=== PATIENT | female | born 1985 | race Caucasian/White ===

== ENCOUNTER 2025-06-05 13:31 | Inpatient (IN) | payer MEDICAID, OTHER, SELFPAY ==
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
[2025-06-05 13:50] VITALS: BP 147/88; BP 176/124; PULSE 121; PULSE 97; RESP 16; TEMP 36.3; O2SAT 97; O2SAT 99; BMI 34.7
[2025-06-05 13:54] VITALS: RESP 16
--- NOTE | 2025-06-05 13:56 | ECG_ITS ---
Test Reason : MED CLEAR Blood Pressure : */* mmHG Vent. Rate : 85 BPM Atrial Rate : 85 BPM P-R Int : 156 ms QRS Dur : 106 ms QT Int : 380 ms P-R-T Axes : 28 56 40 degrees QTcB Int : 452 ms Normal sinus rhythm Incomplete right bundle branch block Borderline ECG No previous ECGs available Referred By: Emily Tate Electronically Signed By: Santo Isaac
--- NOTE | 2025-06-05 13:57 | PC.NURSE ---
Anusha presents to the Emergency Department today via ambulance on a Section 12 issued by [facility] pin worker in the field. per Section 12, pt is decompensation, agitated, with a history of aggression and not attending to medical needs. Upon arrival, pt has very disorganized thought processes, talking in circles about being unable to discuss medical topics as she needs because she needs to conserve oxygen . Pt reports she was outside digging out her sprinklers when someone from the [facility] came and called 911 on her. Pt denies SI/HI/AH/VH Pt does have notable bilateral lower extremity swelling which she reports is not baseline, will not let this RN palpate
--- NOTE | 2025-06-05 14:10 | PC.NURSE ---
Pt refusing to verify allergies I cannot speak any longer, I must conserve all my oxygen
[2025-06-05 14:36] LABS: MANUAL DIFF FLAG NO
[2025-06-05 14:37] LABS: Hematocrit 32.3 % (37.0-47.0); Hemoglobin 10.6 g/dl (12.0-16.0); Imm Gran Abs Auto 0.04 X10*3/uL (0.00-0.03); Imm Gran Pct Auto 0.4 % (0.0-0.4); Lymphocytes Absolute Auto 1.2 X10*3/uL (1.2-4.9); Mean Corpuscular HGB Conc 32.8 g/dl (31.0-35.0); Mean Corpuscular Hemoglobin 27.5 pg (27.0-33.0); Mean Corpuscular Volume 83.7 fL (80.0-98.0); NRBC Abs Auto 0.000 X10*3/uL (0.0-0.012); NRBC Pct Auto 0.0 /100WBC (0.0-0.2); Platelet Count 477 X10*3/uL (160-400); Red Blood Count 3.86 X10*6/uL (4.20-5.50); White Blood Count 9.9 X10*3/uL (4.8-10.8)
[2025-06-05 15:01] LABS: Acetaminophen LAB < 3 mcg/mL (<30); Alanine Aminotransferase 28 U/L (0-31); Albumin Level 4.2 g/dL (3.5-5.0); Alkaline Phosphatase 70 U/L (39-117); Anion Gap 9 (12-20); Aspartate Amino Transferase 33 U/L (5-31); Blood Urea Nitrogen 12 mg/dL (9-16); Calcium 9.2 mg/dL (8.4-10.2); Carbon Dioxide 28 mmol/L (22-29); Chloride 106 mmol/L (96-108); Creatinine Clr Calc Pharmacy 130.1; Estimated Glomerular Filt Rate > 60; Potassium 3.2 mmol/L (3.3-5.1); Salicylate < 5.0 mg/dL (15-30); Sodium 140 mmol/L (135-145); Total Protein 7.6 g/dL (6.5-8.0)
--- OUTSIDE RECORDS SUMMARY | 2025-06-05 15:24 | XMS_ITS | Clinical Summary ---
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
--- OUTSIDE RECORDS SUMMARY | 2025-06-05 15:24 | XMS_ITS | Encounter Summary ---
Author Organization [facility] Address [address] [place] [address] Care Team Providers Care Shoes Hand Sewer Name Role Phone Jeovany Hurleyjerzy Primary Care Provider [phone] Encounter Details Date Type Department Care Team (Late st Contact Info) Description 07/28/2024 Patient Outreach [facility] [address] [place] [phone] Director Of Women'S Services: Emily Madrid RN Social History Tobacco Use Types Packs/Day Years Used Date Smoking Tobacco: Former Cigarettes 0.3 19.5 S tarted: 2006 Smokeless Tobacco: Former Alcohol Use Standard Drinks/Week Comments Not Currently 0 (1 standard drink = 0.6 oz pur e alcohol) Comments No Sex and Gender Information Value Date Recorded Sex Assigned at Female 03/06/2022 8:33 AM EDT Legal Sex Female 1:46 PM EDT Gender Identity Female 03/06/2022 8:33 AM EDT Sexual Orientation Straight 03/06/2022 8: 33 AM EDT documented as of this encounter Plan of Treatment Upcoming Encounters Date Type Department Care Team (Late st Contact Info) Description 08/22/2025 9:45 AM EDT Appointment [facility] [address] [place] [phone] Director Of Women'S Services: Aryan Israel Jr., MD [address] [place] [phone] documented as of this encounter Visit Diagnoses Not on filedocumented in this encounter Care Teams Shoes Hand Sewer Relationship Specialty Start Date End Date Meghana Hurley [address] [place] [id number] PCP - General Nurse Practitioner 05/23/21 documented as of this encounter
--- OUTSIDE RECORDS SUMMARY | 2025-06-05 15:24 | XMS_ITS | Clinical Summary ---
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 Active amoxicillin (AMOXIL) 875 MG tablet Take 1 tablet (875 mg total) by mouth 2 (two) times a day. 04/25/2025 Active gabapentin (NEURONTIN) 100 MG capsule Take 1 capsule (100 mg total) by mouth 3 (three) times a day. 03/28/2025 Active nystatin (MYCOSTATIN) 610400 UNIT/ML suspension Take 5 mL (500,000 Units total) by mouth 4 (four) times a day. 04/25/2025 Active Active Problems Problem Noted Date Diagnosed Date Paranoia 04/27/2025 Encounters Date Type Department Care Team Description 04/27/2025 7:54 AM EDT - 04/27/2025 6:15 PM EDT Hospital Encounter [facility] Emergency Department [address] [place] [address] Diane Espinosa MD Anxiety (Primary Dx); Paranoia (HCC); Palpitations; Depression, unspecified depression type Discharge Disposition: Home or Self Care 04/27/2025 Travel from Last 3 Months Social History Tobacco Use Types Packs/Day Years Used Date Smoking Tobacco: Never Assessed Comments Unknown Sex and Gender Information Value Date Recorded Sex Assigned at Female 04/27/2025 9:30 AM EDT Legal Sex Female 7:27 AM EDT Gender Identity Female 04/27/2025 9:30 AM EDT Sexual Orientation Choose not to disclose 2024 9:30 AM EDT Last Filed Vital Signs Vital Sign Reading Time Taken Comments Blood Pressure 145/70 04/27/2025 11:06 AM EDT Pulse 80 04/27/2025 11:06 AM EDT Temperature 36.3 C (97.3 F) 04/27/2025 11:06 AM EDT Respiratory Rate 16 04/27/2025 11:06 AM EDT Oxygen Saturation 99% 04/27/2025 11:06 AM EDT Inhaled Oxygen Concentration - - Weight - - Height - - Body Mass Index - - Plan of Treatment Health Maintenance Due Date Last Done Comments Hepatitis C Virus Screening 1984 HIV Screening 1997 DTaP/Tdap/Td Vaccines (1 - Tdap) 2003 Hepatitis B Vaccines (1 of 3 - 19+ 3-dose series) 2003 Pap Smear (Ages 21-65) 2005 Mammogram 2024 COVID-19 Vaccine ( - 2023-2 5 season) 2024 Influenza Vaccine 06/29/2025 HPV Vaccines Aged Out No longer eligi ble based on patient's age to complete this topic Pneumococcal Vaccine: Pediat radha (0-5 Years) and At-Risk Patients (6 to 49 Years) Aged Out No longer eligible b ased on patient's age to complete this topic Procedures Procedure Name Priority Date/Time Associated Diagnosis Comments URINALYSIS WITH REFLEX TO MICROSCOPIC AND CULTURE STAT 04/27/2025 12:48 PM EDT POCT ALCOHOL BREATH TEST (ED) Routine 04/27/2025 12:42 PM EDT TSH, HIGHLY SENSITIVE Routine 04/27/2025 9:02 AM EDT MAGNESIUM Routine 04/27/2025 9:02 AM EDT BETA-HCG, QUALITATIVE Routine 04/27/2025 9:02 AM EDT HIGH SENSITIVITY TROPONIN T CARD 04/27/2025 9:02 AM EDT COMPREHENSIVE METABOLIC PANEL STAT 04/27/2025 9:02 AM EDT COMPLETE BLOOD COUNT, WITH DIFFERENTIAL STAT 04/27/2025 9:02 AM EDT ECG 12-LEAD STAT 04/27/2025 8:57 AM EDT from Last 3 Months Results * (ABNORMAL) Urinalysis with Reflex to Microscopic and Culture (04/27/2025 12:48 PM EDT) Color Yellow 04/27/2025 1:29 PM EDT [facility] Clarity Slightly cloudy 04/27/2025 1:29 PM EDT [facility] Specific [place] 1.025 1.003 - 1.030 04/27/2025 1:29 PM EDT [facility] pH 5.0 5.0 - 8.0 04/27/2025 1:29 PM EDT [facility] Leukocyte Esterase Small(A) Negative 04/27/2025 1:29 PM EDT [facility] Nitrite Negative Negative 04/27/2025 1:29 PM EDT [facility] Protein Negative Negative [facility] Gl[facility] 0 0 - 99 mg/dL 04/27/2025 1:29 PM EDT [facility] Ketones Small(A) Negative 04/27/2025 1:29 PM EDT [facility] Blood Moderate(A) Negative 04/27/2025 1:29 PM EDT [facility] Bilirubin Negative Negative 04/27/2025 1:29 PM EDT [facility] WBC 5(H) 0 - 4 per hpf 04/27/2025 1:29 PM [facility] RBC 5(H) 0 - 4 per hpf 04/27/2025 1:29 PM EDT [facility] Squamous Epithelial Cells 18 PER HPF 04/27/2025 1:29 PM [facility] Urine Urine specimen obtained by clean catch procedure / Unknown 04/27/2025 12:48 PM EDT 04/27/2025 1:03 PM EDT Diane Espinosa MD URINE ORDERABLES Final Resu lt [address] [address], [address] [address] * POCT Alcohol Breath Test (ED) (04/27/2025 12:42 PM EDT) [facility] Breath Alcohol 0.000 Breath 04/27/2025 12:4 2 PM EDT us Diane Espinosa MD POINT OF CARE TEST ORDERABL ES Final Result * Troponin T, High Sensitivity (04/27/2025 9:02 AM EDT) [facility] High Sensitivity Troponin T 7 <15 ng/L 04/27/2025 10:55 AM EDT [facility] Delta (Change) NO PREVIOUS RESULT <3 04/27/2025 10:55 AM EDT [facility] Blood Blood specimen / Unknown 04/27/2025 9:02 AM EDT 04/27/2025 10:07 AM EDT us Diane Espinosa MD LAB BLOOD ORDERABLES Final Result Performing Organization Address City/[facility]/ZIP Co de Phone Number [address] [address], [address] [address] * (ABNORMAL) Complete Blood Count, with Differential (04/27/2025 9:02 AM EDT) [facility] White Blood Cell Count 12.0(H) 4.0 - 11.0 Thou/uL 04/27/2025 10:28 AM EDT [facility] Platelet Count 482(H) 150 - 450 Thou/uL 04/27/2025 10:28 AM EDT [facility] Hemoglobin 11.4(L) 11.7 - 15.7 g/dL 04/27/2025 10:28 AM EDT [facility] Hematocrit 35.1 35.0 - 47.0 % 04/27/2025 10:28 AM EDT [facility] Red Blood Cell Count 4.17 4.00 - 5.40 Mil/uL 04/27/2025 10:28 AM [facility] MCV 84 80 - 100 fL 04/27/2025 10:28 AM [facility] MCH 27.3 26.0 - 34.0 pg 04/27/2025 10:28 AM [facility] MCHC 32.5 30.0 - 36.0 g/dL 04/27/2025 10:28 AM [facility] RDW 14.7(H) 11.5 - 14.5 % 04/27/2025 10:28 AM [facility] MPV 8.9 7.5 - 12.5 fL 04/27/2025 10:28 AM [facility] Neutrophils Auto 80.6 % 04/27/20 10:28 AM [facility] Immature Granulocytes 0.6 % 04/27/2025 10:28 AM [facility] Lymphocytes Auto 11.2 % 04/27/20 10:28 AM [facility] Monocytes Auto 7.1 % 04/27/2025 10:28 AM [facility] Eosinophils Auto 0.2 % 04/27/20 10:28 AM [facility] Basophils Auto 0.3 % 04/27/2025 10:28 AM [facility] Abs Neutrophils Auto 9.65(H) 2.00 - 7.50 Thou/uL 04/27/2025 10:28 AM [facility] Abs Immature Granulocytes 0.07 0.00 - 0.10 Thou/uL 04/27/2025 10:28 AM [facility] Abs Lymphocytes Auto 1.34(L) 1.50 - 4.50 Thou/uL 04/27/2025 10:28 AM [facility] Abs Monocytes Auto 0.85 0.20 - 1.50 Thou/uL 04/27/2025 10:28 AM [facility] Abs Eosinophils Auto 0.02 0.00 - 0.70 Thou/uL 04/27/2025 10:28 AM [facility] Abs Basophils Auto 0.04 0.00 - 0.20 Thou/uL 04/27/2025 10:28 AM [facility] Blood Blood specimen / Unknown 04/27/2025 9:02 AM EDT 04/27/2025 10:07 AM EDT us Diane Espinosa MD LAB BLOOD ORDERABLES Final Result [address] [address], [address] [address] * BETA-HCG, QUALITATIVE (04/27/2025 9:02 AM EDT) Beta-hCG, Qualitative Negative Negative 04/27/2025 10:55 AM EDT [facility] 04/27/2025 9:02 AM EDT 04/27/2025 10:07 AM EDT us Diane Espinosa MD LAB BLOOD ORDERABLES Final Result Performing Organization Address City/[facility]/ZIP Co de Phone Number [address] [address], [address] [address] * TSH, HIGHLY SENSITIVE (04/27/2025 9:02 AM EDT) TSH, Highly Sensitive 1.41 0.27 - 4.20 mIU/L 04/27/2025 10:55 AM EDT [facility] 04/27/2025 9:02 AM EDT 04/27/2025 10:07 AM EDT us Diane Espinosa MD LAB BLOOD ORDERABLES Final Result [address] [address], [address] [address] * Magnesium (04/27/2025 9:02 AM EDT) Magnesium 2.3 1.6 - 2.7 mg/dL 04/27/2025 11:06 AM EDT [facility] 04/27/2025 9:02 AM EDT 04/27/2025 10:07 AM EDT us Diane Espinosa MD LAB BLOOD ORDERABLES Final Result [facility] [address] [place] [address], [facility] [address] [place] [address] * (ABNORMAL) Comprehensive Metabolic Panel (04/27/2025 9:02 AM EDT) Glucose 109(H) 65 - 99 mg/dL 04/27/2025 11:06 AM [facility] Comment:Fasting: <100 mg/dL, Non-Fasting: <200 mg/dL (ADA 2004) Blood Urea Nitrogen (BUN) 12 8 - 21 mg/dL 04/27/2025 11:06 AM [facility] Creatinine 0.5 0.4 - 1.1 mg/dL 04/27/2025 11:06 AM [facility] eGFR >90 >59 04/27/2025 11:06 AM [facility] Comment:CKD-EPI (2020) in mL /min/1.73 sq meters. Sodium 134(L) 136 - 145 mmol/L 04/27/2025 11:06 AM [facility] Potassium 3.4 3.4 - 5.3 mmol/L 04/27/2025 11:06 AM [facility] Chloride 98 98 - 107 mmol/L 04/27/2025 11:06 AM [facility] CO2 20(L) 22 - 33 mmol/L 04/27/2025 11:06 AM [facility] Calcium 9.2 8.7 - 10.5 mg/dL 04/27/2025 11:06 AM [facility] Alkaline Phosphatase 87 32 - 122 U/L 04/27/2025 11:06 AM [facility] Aspartate Aminotrans (AST) 41 10 - 50 U/L 04/27/2025 11:06 AM [facility] Alanine Aminotrans (ALT) 45 10 - 50 U/L 04/27/2025 11:06 AM [facility] Bilirubin, Total 0.4 0.2 - 1.0 mg/dL 04/27/2025 11:06 AM EDT [facility] Protein, Total 8.1 6.3 - 8.3 g/dL 04/27/2025 11:06 AM EDT [facility] Albumin 4.0 3.5 - 5.0 g/dL 04/27/2025 11:06 AM EDT [facility] BUN/Creatinine Ratio 24 10.0 - 25.0 Ratio 04/27/2025 11:06 AM EDT [facility] Globulin 4.1(H) 1.5 - 3.9 g/dL 04/27/2025 11:06 AM EDT [facility] Albumin/Globulin Ratio 1.0 1.0 - 3.0 Ratio 04/27/2025 11:06 AM EDT [facility] Anion Gap 16 7 - 17 04/27/2025 11:06 AM EDT [facility] Blood Blood specimen / Unknown 04/27/2025 9:02 AM EDT 04/27/2025 10:07 AM EDT Diane Espinosa MD LAB BLOOD ORDERABLES Final Result [address] [address], [address] [address] * ECG 12 lead (04/27/2025 8:57 AM EDT) Ventricular rate 83 BPM EKG [facility] Atrial rate 83 BPM EKG [facility] P-R interval 134 ms EKG [facility] QRS duration 104 ms EKG [facility] Q-T interval 376 ms EKG [facility] QTC calculation (Bazett) 442 ms EKG [facility] P axis 18 degrees EKG [facility] R axis 28 degrees EKG [facility] T axis 14 degrees EKG [facility] 04/27/2025 8:57 AM EDT Narrative EKG [facility] - 04/27/2025 8:16 PM EDT Normal sinus rhythm Incomplete right bundle branch block Borderline ECG No previous ECGs available Confirmed by MD Vogel Ahmed ([id number]) on 04/27/2025 8:15:54 PM Procedure Note Keren Vogel MD - 04/27/2025 Normal sinus rhythm Incomplete right bundle branch block Borderline ECG No previous ECGs available Confirmed by MD Vogel Ahmed ([id number]) on 04/27/2025 8:15:54 PM Diane Espinosa MD ECG ORDERABLES Final Resul t EKG [facility] from Last 3 Months Insurance [facility]
--- NOTE | 2025-06-05 16:08 | PC.NURSE ---
Pt actively refusing to give urine sample and will not allow for EKG
--- NOTE | 2025-06-05 17:59 | PC.NURSE ---
Pt reports to this RN I need to be seen immediately by an OBGYN for the medical emergency I am having . Pt then went on to detail how she has had multiple falls over the past two months with multiple miscarriages. Pt denies at this time. Pt demanding to call her therapist, pt provided with number for [facility]. Pt was evaluated by provider for abdominal pain with no active findings at this time
--- NOTE | 2025-06-05 18:04 | PC.NURSE ---
Pt reports I am hemorrhaging and no one gives a shit . 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 Again pt has been medically cleared
--- NOTE | 2025-06-05 18:08 | PC.NURSE ---
Addendum entered by Selma Hidalgo 06/05/25 18:13: pt continues to repeat herself Please stop asking me to repeat myself, you are exacerbating my conditions Original Note: Pt currently on phone with therapist office I need to speak with my therapist, this is an emergency I am being held against my will, I am not being treated, I cannot speak without wasting oxygen, send help . This RN attempted to verbally redirect patient, pt continuing to speak on phone
--- NOTE | 2025-06-05 18:22 | PC.NURSE ---
This RN spoke to pts father on the phone, he reports that pt has been having episodes of psychosis recently, was recently inpatient at [place], was discharged with medications and has since been non-compliant with medications since
--- NOTE | 2025-06-05 19:39 | PC.NURSE ---
patient continues with delusion and periodically argumentative with staff you are not attending to my medical needs apprently has declined to give us urine sample. will continue to monitor for safety.
--- NOTE | 2025-06-05 20:11 | PC.NURSE ---
calling peer and trying to have a person come visit t/w advised client visiting hours are 8-8p. the lock was too heavy to lift for my bike car is in impound and i cant afford to get it out so i said just keep it
--- NOTE | 2025-06-05 20:36 | PC.NURSE ---
intra administration of tylenol for abd cramps patient reported shivering and had just received last blanket from blanket warmer, t/w told client she had the last one and t/w would bring another when it was warm, in about 20 minutes t/w also had request for warm pack which patient had had one in last hour, t/w told her about 3 hours she may have another.
--- NOTE | 2025-06-06 05:17 | PC.NURSE ---
patient made rbistling antagonistic statements to staff who were attending to her wants during and after obtaining urine sample. mildly challenging to redirect.
[2025-06-06 05:23] LABS: Appearance Urine Cloudy; Glucose Urine UA Negative (Negative); PH 6.0 (5.0-9.0); Specific Gravity - Urine 1.020 (1.005-1.025); UMIC TRIGGER UA YES
[2025-06-06 05:32] LABS: Cannabinoid Screen Urine POSITIVE (Not Detect)
--- NOTE | 2025-06-06 07:37 | PC.NURSE ---
Patient ambulating in common area stating I need a kosher diet, I can not eat sausage [facility] called stating they do not do kosher diets- patient agreeable to eggs and toast.
[2025-06-06 07:47] VITALS: BP 140/105; PULSE 92; RESP 16; TEMP 36.1; O2SAT 97
--- NOTE | 2025-06-06 08:29 | PC.NURSE ---
Declined AM meds stating that she is , reviewed with patient that test was negative, patient with belief that she is is and needs to be seen by obgyn. Care team aware stating PA spoke with patient yesterday.
--- NOTE | 2025-06-06 08:48 | PC.NURSE ---
Patient father dropped off discharge paperwork from previous hospital stay, paperwork placed in patients chart.
--- NOTE | 2025-06-06 10:30 | PHA.MEDREC ---
Addendum entered by Jim Kirby [facility] 06/06/25 11:53: MED REC CHECKED BY [facility] Original Note: Pharmacy Consult ? Medication Reconciliation Pharmacy reviewed med rec done by nursing. Claims match what is confirmed.
[2025-06-06 11:39] VITALS: BP 147/92; PULSE 92; RESP 16; TEMP 36.4; O2SAT 98
[2025-06-06 11:50] LABS: Alanine Aminotransferase 26 U/L (0-31); Albumin Level 3.8 g/dL (3.5-5.0); Alkaline Phosphatase 67 U/L (39-117); Anion Gap 9 (12-20); Aspartate Amino Transferase 26 U/L (5-31); Blood Urea Nitrogen 6 mg/dL (9-16); Calcium 9.5 mg/dL (8.4-10.2); Carbon Dioxide 28 mmol/L (22-29); Chloride 105 mmol/L (96-108); Creatinine Clr Calc Pharmacy 150.3; Estimated Glomerular Filt Rate > 60; Potassium 3.4 mmol/L (3.3-5.1); Sodium 139 mmol/L (135-145); Total Protein 7.1 g/dL (6.5-8.0)
[2025-06-06 14:00] VITALS: BP 150/80; PULSE 93; RESP 18; TEMP 36.7; O2SAT 97
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
--- NOTE | 2025-06-06 16:23 | PC.NURSE ---
Pt signed a 3 day notice 06/06/25, up on Wednesday06/11/25
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
[2025-06-06 21:18] VITALS: RESP 18
[2025-06-07 07:00] VITALS: BMI 33.3
[2025-06-07 07:42] VITALS: BP 137/87; PULSE 95; RESP 20; TEMP 36.4; O2SAT 98
[2025-06-07 08:54] LABS: Hemoglobin A1C 113.9628 umol/L; Total Hemoglobin (HGBA1C) 3096.9840 umol/L
[2025-06-07 08:55] LABS: Alanine Aminotransferase 24 U/L (0-31); Albumin Level 3.9 g/dL (3.5-5.0); Alkaline Phosphatase 68 U/L (39-117); Anion Gap 11 (12-20); Aspartate Amino Transferase 27 U/L (5-31); Blood Urea Nitrogen 8 mg/dL (9-16); Calcium 8.8 mg/dL (8.4-10.2); Carbon Dioxide 27 mmol/L (22-29); Chloride 103 mmol/L (96-108); Cholesterol 189 mg/dL (<200); Creatinine Clr Calc Pharmacy 134.0; Estimated Glomerular Filt Rate > 60; HDL Cholesterol 38 mg/dL (>40); Potassium 3.5 mmol/L (3.3-5.1); Sodium 137 mmol/L (135-145); Total Protein 7.2 g/dL (6.5-8.0); Triglycerides 116 mg/dL (<150)
[2025-06-07] MEDS: Nicotine Polacrilex Lozenge 4 MG LOZENGE BUCCAL (14:20)
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
[2025-06-07 20:00] VITALS: BP 116/58; PULSE 87; RESP 16; TEMP 36.6; O2SAT 95
[2025-06-07] MEDS: carBAMazepine ER 200 MG TAB.ER.12H PO (20:51)
[2025-06-08 07:25] VITALS: BP 132/88; PULSE 85; RESP 16; TEMP 36.4; O2SAT 99
[2025-06-08] MEDS: carBAMazepine ER 200 MG TAB.ER.12H PO ×2 (08:04→20:11)
[2025-06-08] MEDS: Nicotine Polacrilex Lozenge 4 MG LOZENGE BUCCAL ×4 (10:29→17:49)
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
[2025-06-08] MEDS: Mineral Oil/Petrolatum,White 106 GM Tube 1 APPL TOPICAL (14:38)
[2025-06-08 19:34] VITALS: BP 140/76; PULSE 96; RESP 17; TEMP 36.4; O2SAT 99
[2025-06-09] MEDS: Nicotine Polacrilex Lozenge 4 MG LOZENGE BUCCAL ×4 (06:36→20:16)
[2025-06-09 08:00] VITALS: BP 117/65; PULSE 90; RESP 18; TEMP 36.4; O2SAT 99
[2025-06-09] MEDS: Mineral Oil/Petrolatum,White 106 GM Tube 1 APPL TOPICAL (08:16)
[2025-06-09] MEDS: carBAMazepine ER 200 MG TAB.ER.12H PO ×2 (08:17→20:25)
[2025-06-09 20:00] VITALS: BP 146/73; PULSE 84; RESP 16; TEMP 36.4; O2SAT 98
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
[2025-06-10] MEDS: Nicotine Polacrilex Lozenge 4 MG LOZENGE BUCCAL ×6 (06:20→20:03)
[2025-06-10 07:59] VITALS: BP 143/84; PULSE 91; RESP 20; TEMP 36.4; O2SAT 100
[2025-06-10] MEDS: Mineral Oil/Petrolatum,White 106 GM Tube 1 APPL TOPICAL ×2 (08:41→14:50)
[2025-06-10] MEDS: carBAMazepine ER 200 MG TAB.ER.12H PO ×2 (08:41→20:03)
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
[2025-06-10 20:00] VITALS: BP 143/80; PULSE 99; RESP 16; TEMP 36.7; O2SAT 97
[2025-06-10] MEDS: Sodium Chloride 0.65 % Nasal 44 ML SPRBTL 1 SPRAY NOSTRIL-B (20:59)
[2025-06-11] MEDS: Nicotine Polacrilex Lozenge 4 MG LOZENGE BUCCAL ×3 (05:30→11:47)
[2025-06-11 08:00] VITALS: BP 158/69; PULSE 75; RESP 16; TEMP 36.6; O2SAT 98
[2025-06-11] MEDS: carBAMazepine ER 200 MG TAB.ER.12H PO (08:33)
[2025-06-11] MEDS: Mineral Oil/Petrolatum,White 106 GM Tube 1 APPL TOPICAL (08:33)
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
[2025-06-11 11:28] LABS: MANUAL DIFF FLAG NO
[2025-06-11 11:33] LABS: Hematocrit 36.8 % (37.0-47.0); Hemoglobin 11.7 g/dl (12.0-16.0); Imm Gran Abs Auto 0.03 X10*3/uL (0.00-0.03); Imm Gran Pct Auto 0.3 % (0.0-0.4); Lymphocytes Absolute Auto 1.8 X10*3/uL (1.2-4.9); Mean Corpuscular HGB Conc 31.8 g/dl (31.0-35.0); Mean Corpuscular Hemoglobin 26.9 pg (27.0-33.0); Mean Corpuscular Volume 84.6 fL (80.0-98.0); NRBC Abs Auto 0.000 X10*3/uL (0.0-0.012); NRBC Pct Auto 0.0 /100WBC (0.0-0.2); Platelet Count 454 X10*3/uL (160-400); Red Blood Count 4.35 X10*6/uL (4.20-5.50); White Blood Count 9.0 X10*3/uL (4.8-10.8)
[2025-06-11 11:46] LABS: Carbamazepine Tegretol 6.3 mcg/mL (5.0-12.0)
[2025-06-11 11:47] LABS: Alanine Aminotransferase 30 U/L (0-31); Albumin Level 4.4 g/dL (3.5-5.0); Alkaline Phosphatase 72 U/L (39-117); Anion Gap 12 (12-20); Aspartate Amino Transferase 24 U/L (5-31); Blood Urea Nitrogen 11 mg/dL (9-16); Calcium 9.5 mg/dL (8.4-10.2); Carbon Dioxide 29 mmol/L (22-29); Chloride 103 mmol/L (96-108); Creatinine Clr Calc Pharmacy 91.7; Estimated Glomerular Filt Rate > 60; Potassium 5.0 mmol/L (3.3-5.1); Sodium 139 mmol/L (135-145); Total Protein 8.1 g/dL (6.5-8.0)
== END 2025-06-11 12:04 | disposition home or self-care (01) | DRG 753 ==
LOC: HO.ED 16:48 → HO.PADLT16 06-06 12:43
PROVIDERS: Physician Assistant Medical; Admitting Provider Registered Nurse; Emergency Provider Emergency Medicine Emergency Medical Services; Visit Provider Psychiatry & Neurology Psychiatry
DX: F31.2 Bipolar disorder, current episode manic severe with psychotic features (principal); F17.210 Nicotine dependence, cigarettes, uncomplicated; F43.10 Post-traumatic stress disorder, unspecified; Z71.6 Tobacco abuse counseling; Z79.84 Long term (current) use of oral hypoglycemic drugs; Z79.899 Other long term (current) drug therapy
CPT/HCPCS: 36415; 80048; 80053; 80061; 80076; 80143; 80156; 80179; 80307; 81001; 83036; 84702; 85025; 93005; 99285; S9485

== ENCOUNTER → 2025-06-05 13:56 | Outpatient (BNV) | payer MEDICAID, SELFPAY | PROVIDERS: Admitting Provider Registered Nurse; Emergency Provider Emergency Medicine Emergency Medical Services; Visit Provider Internal Medicine Cardiovascular Disease | DX: I45.10 Unspecified right bundle-branch block (principal) | CPT/HCPCS: 93010 ==

== ENCOUNTER → 2025-06-06 12:39 | Outpatient (BNV) | payer OTHER, SELFPAY | PROVIDERS: Admitting Provider Registered Nurse; Emergency Provider Emergency Medicine Emergency Medical Services; Visit Provider Nurse Practitioner Family | DX: F31.2 Bipolar disorder, current episode manic severe with psychotic features (principal); F43.11 Post-traumatic stress disorder, acute | CPT/HCPCS: 99232 ==

== ENCOUNTER 2025-07-24 11:38 | Inpatient (IN) | payer OTHER, SELFPAY ==
[2025-07-24 11:59] VITALS: BP 127/86; PULSE 105; RESP 18; O2SAT 98; BMI 31.9
--- NOTE | 2025-07-24 12:09 | ECG_ITS ---
Test Reason : CHEST PAIN Blood Pressure : */* mmHG Vent. Rate : 85 BPM Atrial Rate : 85 BPM P-R Int : 142 ms QRS Dur : 100 ms QT Int : 370 ms P-R-T Axes : 46 18 8 degrees QTcB Int : 440 ms Normal sinus rhythm with sinus arrhythmia Incomplete right bundle branch block Borderline ECG When compared with ECG of 05-Jun-2025 23:34, No significant change was found Referred By: Martine Chacon Electronically Signed By: ALEC SIMEON
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
[2025-07-24 13:02] LABS: MANUAL DIFF FLAG NO
[2025-07-24 13:06] LABS: Hematocrit 40.5 % (37.0-47.0); Hemoglobin 13.3 g/dl (12.0-16.0); Imm Gran Abs Auto 0.04 X10*3/uL (0.00-0.03); Imm Gran Pct Auto 0.4 % (0.0-0.4); Lymphocytes Absolute Auto 1.5 X10*3/uL (1.2-4.9); Mean Corpuscular HGB Conc 32.8 g/dl (31.0-35.0); Mean Corpuscular Hemoglobin 27.2 pg (27.0-33.0); Mean Corpuscular Volume 82.8 fL (80.0-98.0); NRBC Abs Auto 0.000 X10*3/uL (0.0-0.012); NRBC Pct Auto 0.0 /100WBC (0.0-0.2); Platelet Count 480 X10*3/uL (160-400); Red Blood Count 4.89 X10*6/uL (4.20-5.50); White Blood Count 11.0 X10*3/uL (4.8-10.8)
[2025-07-24 13:08] LABS: Appearance Urine Clear; Glucose Urine UA Negative (Negative); PH 6.0 (5.0-9.0); Specific Gravity - Urine <= 1.005 (1.005-1.025); UMIC TRIGGER UA YES; UPreg QC Valid YES
[2025-07-24 13:19] LABS: COVID-19 Test Negative (Negative); Cannabinoid Screen Urine POSITIVE (Not Detect); IDNOW Serial# 58CA691E
[2025-07-24 13:25] LABS: Acetaminophen LAB < 3 mcg/mL (<30); Salicylate < 5.0 mg/dL (15-30)
[2025-07-24 13:25] LABS: Alanine Aminotransferase 29 U/L (0-31); Albumin Level 4.8 g/dL (3.5-5.0); Alkaline Phosphatase 72 U/L (39-117); Anion Gap 13 (12-20); Aspartate Amino Transferase 32 U/L (5-31); Blood Urea Nitrogen 7 mg/dL (9-16); Calcium 9.8 mg/dL (8.4-10.2); Carbon Dioxide 26 mmol/L (22-29); Chloride 99 mmol/L (96-108); Creatinine Clr Calc Pharmacy 127.6; Estimated Glomerular Filt Rate > 60; Potassium 3.4 mmol/L (3.3-5.1); Sodium 135 mmol/L (135-145); Total Protein 8.9 g/dL (6.5-8.0)
--- OUTSIDE RECORDS SUMMARY | 2025-07-24 13:34 | XMS_ITS | Encounter Summary ---
Author Organization [facility] Address [address] [place] [address] Care Team Providers Care Petroleum Terminal Plant Operator Name Role Phone Jeovany Hurleyjerzy Primary Care Provider [phone] Encounter Details Date Type Department Care Team (Late st Contact Info) Description 07/13/2024 Orders Only [facility] Interventional Radiology [address] [place] [phone] Gabriel Ashley MD [address] [place] [phone] Social History Tobacco Use Types Packs/Day Years Used Date Smoking Tobacco: Former Cigarettes 0.3 19.6 S tarted: 2006 Smokeless Tobacco: Former Alcohol [...] Info) Description 08/22/2025 9:45 AM EDT Appointment [facility] [address] [place] [address] [phone] Catering Operations Manager: Aryan Israel Jr., MD [address] [place] [address] [phone] documented as of this encounter Visit Diagnoses Not on filedocumented in this encounter Care Teams Petroleum Terminal Plant Operator Relationship Specialty Start Date End Date Meghana Hurley [address] [place] [phone] PCP - General Nurse Practitioner 05/23/21 documented as of this encounter
--- OUTSIDE RECORDS SUMMARY | 2025-07-24 13:34 | XMS_ITS | Encounter Summary ---
Author Organization [facility] Address [address] [place] [address] Care Team Providers Care Manufacturing Operator Name Role Phone Jeovany Hurleyjerzy Primary Care Provider [phone] Encounter Details Date Type Department Care Team (Late st Contact Info) Description 03/28/2025 Patient Outreach [facility] [address] [place] [phone] Classified Advertising Manager: Emily Madrid RN Social History Tobacco Use [...] Info) Description 08/22/2025 9:45 AM EDT Appointment [facility] [address] [place] [phone] Classified Advertising Manager: Aryan Israel Jr., MD [address] [place] [address] [phone] documented as of this encounter Visit Diagnoses Not on filedocumented in this encounter Care Teams Manufacturing Operator Relationship Specialty Start Date End Date Meghana Hurley [address] [place] [phone] PCP - General Nurse Practitioner 05/23/21 documented as of this encounter
--- OUTSIDE RECORDS SUMMARY | 2025-07-24 13:34 | XMS_ITS | Encounter Summary ---
Author Organization [facility] Address [address] [place], [place] [phone] Phone Care Team Providers Care Neurosurgical Nurse Name Role Phone Pcp, Unknown Primary Care Provider Unavailabl e Reason for Referral * MRI/CAT Scan - Closed Specialty Diagnoses / Procedures Referred By Contac t Referred To Contact Radiology Diagnoses Basal cell carcinoma of skin of other parts of face Procedures NM PET CT Skull Base to Mid Thighs Gomez Pearson MD Phone: tel: fax: Referral ID Status Reason Start Date Expiration Date Visits Re quested Visits Authorized [id number] Closed 05/20/2023 1 1 Encounter Details Date Type Department Care Team (Late st Contact Info) Description 05/20/2023 Ancillary Orders [facility], Pet/Ct - [address] [phone] Gomez Pearson MD [address] [place] [address] Basal cell carcinoma of skin of other parts of face Social History Tobacco Use Types Packs/Day Years Used Date Smoking Tobacco: Never Assessed Digital Access Answer Date Recorded No 05/20/2023 No 05/20/2023 Reliable internet access at home? Not on file 05/20/2023 Device with a working camera? Not on file Comments Unknown Sex and Gender Information Value Date Recorded Sex Assigned at Not on file Legal Sex Female 9:16 PM EDT Gender Identity Not on file Sexual Orientation Not on file documented as of this encounter Plan of Treatment Not on file documented as of this encounter Results * NM PET CT Skull Base to Mid Thighs (05/20/2023 3:47 PM EDT) Anatomical Region Laterality Modality Positron Emissio n Tomography (PET) Narrative 05/20/2023 2:30 PM EDT [facility] us Gomez Pearson MD IMG NM PET Final R esult documented in this encounter Visit Diagnoses Diagnosis Basal cell carcinoma of skin of other parts of face Basal cell carcinoma of skin of other parts of face documented in this encounter Care Teams Neurosurgical Nurse Relationship Specialty Start Date End Date Pcp, Unknown PCP - General 05/20/23 documented as of this encounter Additional Source Comments The information contained in this document represents components of the legal health record. It is not the complete legal health record.[facility]
--- OUTSIDE RECORDS SUMMARY | 2025-07-24 13:34 | XMS_ITS | Clinical Summary ---
Author Organization [facility] Address [address] [place], [place] [phone] Phone Care Team Providers Care Picker Box Operator Name Role Phone Pcp, Unknown Primary Care Provider Unavailabl e Social History [...] file Plan of Treatment Not on file Medical Devices Not on file [place] [address] [place] [address] [facility] PCC Care Teams Picker Box Operator Relationship Specialty Start Date End Date Pcp, Unknown PCP - General 05/20/23 Additional Source Comments The information contained in this document represents components of the legal health record. It is not the complete legal health record.[facility]
--- OUTSIDE RECORDS SUMMARY | 2025-07-24 13:34 | XMS_ITS | Clinical Summary ---
Author Organization [facility] Address [address] [place] [address] Care Team Providers Care Refrigerating Machine Operator Name Role Phone Meghana Hurley Primary Care Provider [phone] Allergies Active Allergy Reactions Criticality Noted Date Comments Adhesive Tape-Silicones Rash 07/13/2023 Apple Itching 07/13/2023 Brown Pepper Itching 09/25/2023 Fish Derived Hives 07/13/2023 Ascorbic Acid (Vitamin C) Itching 07/13/2023 Fruit skins Mary Angioedema High 07/13/2023 Sesame Seed Itching 07/13/2023 Itching throat Medications albuterol (PROAIR HFA,VENTOLIN HFA) 90 mcg inhaler Active acetaminophen (TYLENOL) 325 mg tablet Take 2 tablets (650 mg total) by mouth every 6 hours as needed for pain. 3 Active nicotine, polacrilex, (COMMIT) [address] 2 mg between cheek and gums as needed. 3 Active bacitracin 500 unit/gram ointment Apply topically to the affected area 3 times a day. 3 Active Additional Information Patient not taking.Reported on 01/31/2025 gabapentin (NEURONTIN) 100 mg capsuleIndicati ons:Cancer related pain,Basal cell carcinoma (BCC) of skin of nose Take 1 capsule (100 mg total) by mouth 3 times a day. 90 capsule 5 Active Active Problems Patient Care Coordination No te Formatting of this note migh t be different from the original. 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 03/04/2023 Resolved Problems Problem Noted Date Diagnosed Date Resolved Date Status post radical dissection of neck 09/21/2023 09/21/2023 Encounters Date Type Department Care Team Description 04/29/2025 Orders Only [facility] Ot[facility]ology [facility] [address] [place] [phone] Senior Electronics Engineer: Sangeetha Mcmillan MD from Last 3 Months Immunizations Immunization Administration Dates Next Due Influenza, Injectable, Quadr ivalent, Preservative Free 09/27/2023(Deferred: Patient Refused) Family History Medical History Relation Name Comments Hyperlipidemia Father Hypertension Father COPD Mother Relation Name Status Comments Father Alive Mother Sister Alive Social History Tobacco Use Types Packs/Day Years Used Date Smoking Tobacco: Former Cigarettes 0.3 19.6 S tarted: 2006 Smokeless Tobacco: Former Tobacco Cessation:Counseling Given: Not Answered Alcohol Use Standard Drinks/Week Comments Not Currently 0 (1 standard drink = 0.6 oz pur e alcohol) Comments No Sex and Gender Information Value Date Recorded Sex Assigned at Female 03/06/2022 8:33 AM EDT Legal Sex Female 1:46 PM EDT Gender Identity Female 03/06/2022 8:33 AM EDT Sexual Orientation Straight 03/06/2022 8: 33 AM EDT Last Filed Vital Signs Vital Sign Reading Time Taken Comments Blood Pressure 137/83 07/12/2024 1:38 PM EDT Pulse 69 07/12/2024 1:38 PM EDT Temperature 36.6 C (97.9 F) 11/19/2023 2:23 PM EST Respiratory Rate 18 07/12/2024 1:38 PM EDT Oxygen Saturation 97% 07/12/2024 1:38 PM EDT Inhaled Oxygen Concentration - - Weight 103.9 kg (229 lb) 04/21/2024 11:30 AM EDT Height 172.7 cm (5' 7.99 ) 04/21/2024 11:30 AM E DT Body Mass Index 34.83 04/21/2024 11:30 AM EDT Plan of Treatment Upcoming Encounters Date Type Department Care Team (Late st Contact Info) Description 08/22/2025 9:45 AM EDT Appointment [facility] [address] [place] [phone] Senior Electronics Engineer: Aryan Israel Jr., MD [address] [place] [address] [phone] Health Maintenance Due Date Last Done Comments Cervical Cancer Screening 1984 HIV Screening 1984 HPV and Pap Smear 1984 Hepatitis C Screening 1984 Pap Smear 1984 Varicella Vaccines (1 of 2 - 13+ 2-dose series) 1997 Hepatitis B Vaccines (1 of 3 - 19+ 3-dose series) 2003 DTaP,Tdap,and Td Vaccines (1 - Tdap) 2006 Mammogram 2024 COVID-19 Vaccine (4 - 2023-2 5 season) 2024 10/09/2021, 01/23/2021, 12/26/2020 Alcohol/Substance Use Screening 11/29/2024 10/24/2024 Depression Screening and Follow-Up 11/29/2024 Social Drivers of Health Annual Screening 11/29/2024 Influenza Vaccine (#1) 2025 12/07/2018 RSV Vaccine (60+ years old and patients) (1 - 1-dose 75+ series) 2059 Pneumococcal Vaccine: Pediatric (0-5 Years) and At-Risk Patients (6-50 Years) Aged Out No longer eligible based on patient's age to complete this topic Medical Devices Implanted Type Area Business Continuity Director Device Identifier Shelf Expiration Date Model / Serial / Lot Investment Trader Anastomosis Microvascular Gold 3.0mm [place] - [id number] Implanted:Qty: 1 on 09/21/2023 by Gomez Pearson MD at [facility] Implant Right: Neck SYNOVIS MI[employer] 08/13/2027 [id number] / / [id number] Graft Human Tissue Costal Cartilage-[id number] - [id number] - [id number] Implanted:Qty: 1 on 09/21/2023 by Gomez Pearson MD at [facility] Tissue Right: Nose L[employer]ET 05/31/2028 [id number] / [id number] / Insurance [facility] Advance Directives * Full Code (Latest Code Status on File) Date Activated Date Inactivated Comments 09/21/2023 6:26 AM 09/27/2023 4:23 PM * Full Code Date Activated Date Inactivated Comments 08/03/2023 1:00 PM 08/04/2023 6:44 PM Care Teams Refrigerating Machine Operator Relationship Specialty Start Date End Date Meghana Hurley [address] [place] [phone] PCP - General Nurse Practitioner 05/23/21
--- OUTSIDE RECORDS SUMMARY | 2025-07-24 13:35 | XMS_ITS | Encounter Summary ---
Author Organization [facility] Address [address] [facility] [address] [place] [phone] Phone Care Team Providers Care Quality Control Technician Name Role Phone Pcp, Unknown Primary Care Provider Unavailabl e Encounter Details Date Type Department Care Team (Late st Contact Info) Description 07/18/2024 Procedure Pass [facility], Ct Scan - [address] [address] Social History Tobacco Use Types Packs/Day Years [...] on file documented as of this encounter Visit Diagnoses Not on filedocumented in this encounter Care Teams Quality Control Technician Relationship Specialty Start Date End Date Pcp, Unknown PCP - General 05/20/23 documented as of this encounter Additional Source Comments The information contained in this document represents components of the legal health record. It is not the complete legal health record.[facility]
--- OUTSIDE RECORDS SUMMARY | 2025-07-24 13:35 | XMS_ITS | Clinical Summary ---
Author Organization [facility] Address [address] [place] [address] Care Team Providers Care Solar Site Assessment Specialist Name Role Phone Unavailable Primary Care Provider [...] times a day. 03/28/2025 Active nystatin (MYCOSTATIN) 043396 UNIT/ML suspension Take 5 mL (500,000 Units total) by mouth 4 (four) times a day. 04/25/2025 Active Active Problems Problem Noted Date Diagnosed Date Paranoia 04/27/2025 Encounters Date Type Department Care Team Description 04/27/2025 7:54 AM EDT - 04/27/2025 6:15 PM EDT Hospital Encounter [facility] Emergency Department [address] [place] [address] Diane Espinosa MD Anxiety (Primary Dx); Paranoia [...] series) 2003 Pap Smear (Ages 21-65) 2005 HPV Vaccines (1 - 3-dose SCD M series) 2011 Mammogram 2024 COVID-19 Vaccine ( - 2023-2 5 season) 2024 Influenza Vaccine 06/29/2025 Pneumococcal Vaccine: Pediat radha (0-5 Years) and [...] EDT) Color Yellow 04/27/2025 1:29 PM EDT [facility] Clarity Slightly cloudy 04/27/2025 1:29 PM EDT [facility] Specific [place] 1.025 1.003 - 1.030 04/27/2025 1:29 PM EDT [facility] pH 5.0 5.0 - 8.0 04/27/2025 1:29 PM [facility] Leukocyte Esterase Small(A) Negative 04/[facility] Nitrite Negative Negative 04/27/2025 1:[facility] Protein Negative Negative 04/27/2025 1:29 PM [facility] Glucose 0 0 - 99 mg/dL 04/27/2025 1:29 [facility] Ketones Small(A) Negative 04/27/2025 1:29 PM [facility] Blood Moderate(A) Negative 04/27/2025 1:29 [facility] Bilirubin Negative Negative 04/27/2025 1:29 PM [facility] WBC 5(H) 0 - 4 per hpf 04/27/2025 1:29 PM [facility] RBC 5(H) 0 - 4 per hpf 04/27/2025 1:29 PM [facility] Squamous Epithelial Cells 18 PER HPF 04/27/2025 1:29 PM [facility] Urine Urine specimen obtained by clean catch procedure / Unknown 04/27/2025 12:48 PM EDT 04/27/2025 1:03 PM EDT Diane Espinosa MD URINE ORDERABLES Final Resu lt Performing Organization Address City/[facility]/ZIP Co de Phone Number [address] [address], [address] [address] * POCT Alcohol Breath Test (ED) (04/27/2025 12:42 PM EDT) [facility] Breath Alcohol 0.000 Breath 04/27/2025 12:4 2 PM EDT us Diane Espinosa MD POINT OF CARE TEST ORDERABL ES Final Result * Troponin T, High Sensitivity (04/27/2025 9:02 AM EDT) [facility] High Sensitivity Troponin T 7 <15 ng/L 04/27/2025 10:55 AM EDT [facility] Delta (Change) NO PREVIOUS RESULT <3 04/27/2025 10:55 AM EDT [facility] Blood Blood specimen / Unknown 04/27/2025 9:02 AM EDT 04/27/2025 10:07 AM EDT us Diane Espinosa MD LAB BLOOD ORDERABLES Final Result Performing Organization Address City/[facility] Co de Phone Number [address] [address], [address] [address] * (ABNORMAL) Complete Blood Count, with Differential (04/27/2025 9:02 AM EDT) [facility] White Blood Cell Count 12.0(H) 4.0 - 11.0 Thou/uL 04/27/2025 10:28 AM EDT [facility] Platelet Count 482(H) 150 - 450 Thou/uL 04/27/2025 10:28 AM T [facility] Hemoglobin 11.4(L) 11.7 - 15.7 g/dL 04/27/2025 10:28 AM EDT [facility] Hematocrit 35.1 35.0 - 47.0 % 04/27/2025 10:28 AM EDT [facility] Red Blood Cell Count 4.17 4.00 - 5.40 Mil/uL 04/27/2025 10:28 AM [facility] MCV 84 80 - 100 fL 04/27/2025 10:28 AM [facility] MCH 27.3 26.0 - 34.0 pg 04/27/2025 10:28 AM [facility] MCHC 32.5 30.0 - 36.0 g/dL 04/27/2025 10:28 AM [facility] RDW 14.7(H) 11.5 - 14.5 % 04/27/2025 10:28 AM [facility] MPV 8.9 7.5 - 12.5 fL 04/27/2025 10:28 AM [facility] Neutrophils Auto 80.6 % 04/27/20 10:28 AM [facility] Immature Granulocytes 0.6 % 04/27/2025 10:28 AM [facility] Lymphocytes Auto 11.2 % 04/27/20 10:28 AM [facility] Monocytes Auto 7.1 % 04/27/2025 10:28 AM [facility] Eosinophils Auto 0.2 % 04/27/20 10:28 AM [facility] Basophils Auto 0.3 % 04/27/2025 10:28 AM [facility] Abs Neutrophils Auto 9.65(H) 2.00 - 7.50 Thou/uL 04/27/2025 10:28 AM [facility] Abs Immature Granulocytes 0.07 0.00 - 0.10 Thou/uL 04/27/2025 10:28 AM [facility] Abs Lymphocytes Auto 1.34(L) 1.50 - 4.50 Thou/uL 04/27/2025 10:28 AM [facility] Abs Monocytes Auto 0.85 0.20 - 1.50 Thou/uL 04/27/2025 10:28 AM [facility] Abs Eosinophils Auto 0.02 0.00 - 0.70 Thou/uL 04/27/2025 10:28 AM [facility] Abs Basophils Auto 0.04 0.00 - 0.20 Thou/uL 04/27/2025 10:28 AM [facility] Blood Blood specimen / Unknown 04/27/2025 9:02 AM EDT 04/27/2025 10:07 AM EDT us Diane Espinosa MD LAB BLOOD ORDERABLES Final Result [address] [address], [address] [address] * BETA-HCG, QUALITATIVE (04/27/2025 9:02 AM EDT) Beta-hCG, Qualitative Negative Negative 04/27/2025 10:55 AM EDT [facility] 04/27/2025 9:02 AM EDT 04/27/2025 10:07 AM EDT us Diane Espinosa MD LAB BLOOD ORDERABLES Final Result Performing Organization Address City/[facility]/ZIP Co de Phone Number [address] [address], [address] [address] * TSH, HIGHLY SENSITIVE (04/27/2025 9:02 AM EDT) TSH, Highly Sensitive 1.41 0.27 - 4.20 mIU/L 04/27/2025 10:55 AM EDT [facility] 04/27/2025 9:02 AM EDT 04/27/2025 10:07 AM EDT us Diane Espinosa MD LAB BLOOD ORDERABLES Final Result [address] [address], [address] [address] * Magnesium (04/27/2025 9:02 AM EDT) Magnesium 2.3 1.6 - 2.7 mg/dL 04/27/2025 11:06 AM EDT [facility] 04/27/2025 9:02 AM EDT 04/27/2025 10:07 AM EDT us Diane Espinosa MD LAB BLOOD ORDERABLES Final Result [facility] [address] [place] [address], [facility] [address] [place] [address] * (ABNORMAL) Comprehensive Metabolic Panel (04/27/2025 9:02 AM EDT) Glucose 109(H) 65 - 99 mg/dL 04/27/2025 11:06 AM [facility] Comment:Fasting: <100 mg/dL, Non-Fasting: <200 mg/dL (ADA 2004) Blood Urea Nitrogen (BUN) 12 8 - 21 mg/dL 04/27/2025 11:06 AM [facility] Creatinine 0.5 0.4 - 1.1 mg/dL 04/27/2025 11:06 AM [facility] eGFR >90 >59 04/27/2025 11:06 AM [facility] Comment:CKD-EPI (2020) in mL /min/1.73 sq meters. Sodium 134(L) 136 - 145 mmol/L 04/27/2025 11:06 AM [facility] Potassium 3.4 3.4 - 5.3 mmol/L 04/27/2025 11:06 AM [facility] Chloride 98 98 - 107 mmol/L 04/27/2025 11:06 AM [facility] CO2 20(L) 22 - 33 mmol/L 04/27/2025 11:06 AM [facility] Calcium 9.2 8.7 - 10.5 mg/dL 04/27/2025 11:06 AM [facility] Alkaline Phosphatase 87 32 - 122 U/L 04/27/2025 11:06 AM [facility] Aspartate Aminotrans (AST) 41 10 - 50 U/L 04/27/2025 11:06 AM [facility] Alanine Aminotrans (ALT) 45 10 - 50 U/L 04/27/2025 11:06 AM [facility] Bilirubin, Total 0.4 0.2 - 1.0 mg/dL 04/27/2025 11:06 AM EDT [facility] Protein, Total 8.1 6.3 - 8.3 g/dL 04/27/2025 11:06 AM EDT [facility] Albumin 4.0 3.5 - 5.0 g/dL 04/27/2025 11:06 AM EDT [facility] BUN/Creatinine Ratio 24 10.0 - 25.0 Ratio 04/27/2025 11:06 AM EDT [facility] Globulin 4.1(H) 1.5 - 3.9 g/dL 04/27/2025 11:06 AM EDT [facility] Albumin/Globulin Ratio 1.0 1.0 - 3.0 Ratio 04/27/2025 11:06 AM EDT [facility] Anion Gap 16 7 - 17 04/27/2025 11:06 AM EDT [facility] Blood Blood specimen / Unknown 04/27/2025 9:02 AM EDT 04/27/2025 10:07 AM EDT Diane Espinosa MD LAB BLOOD ORDERABLES Final Result [address] [address], [address] [address] * ECG 12 lead (04/27/2025 8:57 AM EDT) Ventricular rate 83 BPM EKG [facility] Atrial rate 83 BPM EKG [facility] P-R interval 134 ms EKG [facility] QRS duration 104 ms EKG [facility] Q-T interval 376 ms EKG [facility] QTC calculation (Bazett) 442 ms EKG [facility] P axis 18 degrees EKG [facility] R axis 28 degrees EKG [facility] T axis 14 degrees EKG [facility] 04/27/2025 8:57 AM EDT Narrative EKG [facility] - 04/27/2025 8:16 PM EDT Normal sinus rhythm Incomplete right bundle branch block Borderline ECG No previous ECGs available Confirmed by MD Vogel Ahmed ([id number]) on 04/27/2025 8:15:54 PM Procedure Note Keren Vogel MD - 04/27/2025 Normal sinus rhythm Incomplete right bundle branch block Borderline ECG No previous ECGs available Confirmed by MD Vogel Ahmed ([id number]) on 04/27/2025 8:15:54 PM Diane Espinosa MD ECG ORDERABLES Final Resul t EKG [facility] from Last 3 Months Insurance [facility]
--- OUTSIDE RECORDS SUMMARY | 2025-07-24 13:35 | XMS_ITS | Clinical Summary ---
Author Organization [facility] Address [address] [place] [address] Care Team Providers Care Advertisement Compositor Name Role Phone Unavailable Primary Care Provider Unavailabl e Social History Tobacco Use Types Packs/Day Years Used Date Smoking Tobacco: Never Assessed Sex and Gender Information Value Date Recorded Sex Assigned at Not on file Gender Identity Not on file Sexual Orientation Not on file Plan of Treatment Not on file
--- OUTSIDE RECORDS SUMMARY | 2025-07-24 13:35 | XMS_ITS ---
Author Name [facility] Organization Unknown Results Test Name/Text Value Interpretation Date Range Source RBC num/area UrnS HPF 5.0 per hpf Above high normal 04/27/2025 0 - 4 [facility] WBC num/area UrnS HPF 5.0 per hpf Above high normal 04/27/2025 0 - 4 [facility] Squamous num/area UrnS HPF 18.0 PER HPF 04/27/2025 [facility] Color Ur Yellow 04/27/2025 [facility] Glucose Ur Strip-mCnc 0.0 mg/dL 04/27/2025 0 - 99 [facility] Prot Ur Strip-mCnc Negative 04/27/2025 - [facility] Leukocyte esterase Ur Ql Strip Small Abnormal 04/27/2025 - [facility] Sp Gr Ur Strip 1.025 04/27/2025 1.003 - 1.03 H [facility] Bilirub Ur Strip-mCnc Negative 04/27/2025 - [facility] Ketones Ur Strip-mCnc Small Abnormal 04/27/2025 - [facility] pH Ur Strip 5.0 04/27/2025 5 - 8 [facility] Hgb Ur Ql Strip Moderate Abnormal 04/27/2025 - [facility] CT Nitrite Ur Ql Strip Negative 04/27/2025 - [facility] Clarity Ur Slightly cloudy 04/27/2025 [facility] Albumin/Glob SerPl 1.0 Ratio 04/27/2025 1 - 3 [facility] Sodium SerPl-sCnc 134.0 mmol/L Below low normal 04/27/2025 1 36 - 145 [facility] ALT SerPl-cCnc 45.0 U/L 04/27/2025 10 - 50 [facility] T Chloride SerPl-sCnc 98.0 mmol/L 04/27/2025 98 - 10 7 [facility] BUN/Creat SerPl 24.0 Ratio 04/27/2025 10 - 25 [facility] CCT AST SerPl-cCnc 41.0 U/L 04/27/2025 10 - 50 [facility] T ALP SerPl-cCnc 87.0 U/L 04/27/2025 32 - 122 [facility] T Potassium SerPl-sCnc 3.4 mmol/L 04/27/2025 3.4 - 5 .3 [facility] Anion Gap Bld-sCnc 16.0 04/27/2025 7 - 17 [facility] BUN SerPl-mCnc 12.0 mg/dL 04/27/2025 8 - [address] GFR/BSA.pred SerPlBld HGO-HXS-HpATpm >90.0 04/27/2025 59 - [facility] Glucose SerPl-mCnc 109.0 mg/dL Above high normal 04/27/2025 65 - 99 [facility] Calcium SerPl-mCnc 9.2 mg/dL 04/27/2025 8.7 - 10.5 [facility] Prot SerPl-mCnc 8.1 g/dL 04/27/2025 6.3 - 8.[address] CO2 SerPl-sCnc 20.0 mmol/L Below low normal 04/27/2025 22 - 33 [facility] Globulin Ser Calc-mCnc 4.1 g/dL Above high normal 04/27/2025 1.5 - 3.9 [facility] Albumin SerPl-mCnc 4.0 g/dL 04/27/2025 3.5 - 5 [facility] Bilirub SerPl-mCnc 0.4 mg/dL 04/27/2025 0.2 - 1 [facility] Creat SerPl-mCnc 0.5 mg/dL 04/27/2025 0.4 - 1.1 HH CCT Magnesium SerPl-mCnc 2.3 mg/dL 04/27/2025 1.6 - 2. 7 [facility] Delta NO PREVIOUS RESULT 04/27/2025 - 3 [facility] Troponin T SerPl-mCnc 7.0 ng/L 04/27/2025 - 15 [facility] TSH SerPl DL<=0.005 mIU/L-aCnc 1.41 mIU/L 04/27/2025 0.27 - 4.2 [facility] B-HCG Preg SerPl Ql Negative 04/27/2025 - [facility] RDW RBC Auto-Rto 14.7 % Above high normal 04/27/2025 11.5 - 14.5 [facility] Hgb Bld-mCnc 11.4 g/dL Below low normal 04/27/2025 11.7 - 15 .7 [facility] MCH RBC Qn Auto 27.3 pg 04/27/2025 26 - [address] Neutrophils/leuk NFr Bld Auto 80.6 % 04/27/2025 [facility] Basophils/leuk NFr Bld Auto 0.3 % 04/27/2025 [facility] MCHC RBC Auto-mCnc 32.5 g/dL 04/27/2025 30 - 36 [facility] PMV Bld Auto 8.9 fL 04/27/2025 7.5 - 12.5 [facility] Lymphocytes num Bld Auto 1.34 Thou/uL Below low normal 04/27/2025 1.5 - 4.5 [facility] Monocytes num Bld Auto 0.85 Thou/uL 04/27/2025 0.2 - 1.5 [facility] Eosinophil num Bld Auto 0.02 Thou/uL 04/27/2025 0 - 0.7 [facility] Eosinophil/leuk NFr Bld Auto 0.2 % 04/27/2025 [facility] Imm Granulocytes num Bld Auto 0.07 Thou/uL 04/27/2025 0 - 0.1 [facility] WBC num Bld Auto 12.0 Thou/uL Above high normal 04/27/2025 4 - 11 [facility] RBC num Bld Auto 4.17 Mil/uL 04/27/2025 4 - 5.4 [facility] Lymphocytes/leuk NFr Bld Auto 11.2 % 04/27/2025 [facility] Imm Granulocytes/leuk NFr Bld Auto 0.6 % 04/27/2025 [facility] Monocytes/leuk NFr Bld Auto 7.1 % 04/27/2025 [facility] Neutrophils num Bld Auto 9.65 Thou/uL Above high normal 04/27/2025 2 - 7.5 [facility] Platelet num Bld Auto 482.0 Thou/uL Above high normal 04/27/2025 150 - 450 [facility] Hct VFr Bld Auto 35.1 % 04/27/2025 35 - 47 HH CCT MCV RBC Auto 84.0 fL 04/27/2025 80 - 100 [facility] Basophils num Bld Auto 0.04 Thou/uL 04/27/2025 0 - 0.2 CCT Encounters Encounter Type Encounter Reason Primary Diagnosis Location Date Observation Anxiety disorder, unspecified Anxiety disorder, unspecified [place] [facility] 04/27/2025 Care Team Organization Name Specialty Phone Email Start Date End [facility] [employer] 04/27/2025 05/26/2025 [employer] 04/27/2025
--- OUTSIDE RECORDS SUMMARY | 2025-07-24 13:35 | XMS_ITS | Encounter Summary ---
Author Organization [facility] Address [address] [place] [address] Care Team Providers Care Clay Miner Name Role Phone Meghana Hurley Primary Care Provider [phone] Reason for Visit * Reason Onset Date Comments PAC Appt Request - New 06/03/2023 Encounter Details Date Type Department Care Team (Late st Contact Info) Description 06/03/2023 Telephone [facility] [address] [place] [id number] Telephone Intake, Staff PAC Appt Request - New Social History Tobacco Use Types Packs/Day Years Used Date Smoking Tobacco: Every Day Cigarettes 0.3 19.6 Started: 2006 Smokeless Tobacco: Never Alcohol Use Standard Drinks/Week Comments Not Currently 0 (1 standard drink = 0.6 oz pur e alcohol) Comments Unknown Sex and Gender Information Value Date Recorded Sex Assigned at Female 03/06/2022 8:33 AM EDT Legal Sex Female 1:46 PM EDT Gender Identity Female 03/06/2022 8:33 AM EDT Sexual Orientation Straight 03/06/2022 8: 33 AM EDT documented as of this encounter Miscellaneous Notes * Telephone Encounter - Domonique Veliz - 06/03/2023 9:17 AM EDT [facility] PT APPT - DX ; Basal cell carcinoma (BCC) of skin Called out to pt off referral , she asked if it was possible to have this visit as a phone call , states she does not have a computer nor a smart phone & lives about an hour away Best call back#: [phone] Thank you! documented in this encounter Plan of Treatment Upcoming Encounters Date Type Department Care Team (Late st Contact Info) Description 08/22/2025 9:45 AM EDT Appointment [facility] [address] [place] [phone] Bi Architect: Aryan Israel Jr., MD [address] [place] [phone] documented as of this encounter Visit Diagnoses Not on filedocumented in this encounter Care Teams Clay Miner Relationship Specialty Start Date End Date Meghana Hurley [address] [place] [phone] PCP - General Nurse Practitioner 05/23/21 documented as of this encounter
--- OUTSIDE RECORDS SUMMARY | 2025-07-24 13:35 | XMS_ITS | Encounter Summary ---
Author Organization [facility] Address [address] [place] [address] Phone Care Team Providers Care Access Tech Name Role Phone Pcp, Unknown Primary Care Provider Unavailabl e Reason for Referral * MRI/CAT Scan - Closed Specialty Diagnoses / Procedures Referred By Contac t Referred To Contact Radiology Diagnoses Basal cell carcinoma (BCC) of skin of nose Procedures CT Neck Aryan Rodriguez MD [address] [place] [address] Phone: tel: fax: Referral ID Status Reason Start Date Expiration Date Visits Re quested Visits Authorized [id number] Closed 08/23/2024 08/23/2025 1 1 Encounter Details Date Type Department Care Team (Latest Contact Info) Description 07/18/2024 Transcribe Orders Virtual Department [address] [place] [address] Aryan Rodriguez MD [address] [place] [phone] Basal cell carcinoma (BCC) of skin of nose (Primary Dx) Social History Tobacco Use Types Packs/Day Years [...] documented as of this encounter Results * CT NECK SOFT TISSUE WITH CONTRAST (10/15/2024 1:05 PM EST) Anatomical Region Laterality Modality Neck Computed Tomogra phy 10/17/2024 12:1 4 PM EST Impressions 10/17/2024 12:49 PM EST 1. Postoperative change for right nasal resection and reconstruction related to a right nasal basal cell carcinoma. No evidence of local tumor recurrence. 2. No cervical lymphadenopathy. Narrative 10/17/2024 12:[address] NECK SOFT TISSUE WITH CONTRAST Referring clinician's provided indication for this examination in [facility]: Outside Radiology Order; basal cell carcinoma of skin of nose TECHNIQUE: Multidetector-row CT of the neck was performed with intravenous contrast using tailored dose modulation techniques. Images were reconstructed in the axial, coronal, and sagittal planes. COMPARISON: PET/CT May 20, 2023 FINDINGS: Aerodigestive Tract: There is postoperative change for right nasal resection and flap reconstruction with residual narrowing of the right nostril. No nodular soft tissue to suggest local tumor recurrence. Lymph Nodes: Normal. There are no nodes meeting CT criteria for pathologic involvement. Salivary Glands: Normal. No obvious lesion is present. Thyroid Gland: The gland is homogenous in attenuation. Vessels: The major cervical vessels enhance normally. Paranasal Sinuses and Mastoids: The paranasal sinuses and mastoid air cells are well-aerated. Brain and Orbits: Normal. No detectable abnormality is present in the imaged portions of the brain and orbits. Lung Apices: Normal. No abnormal opacity is present. Bones and Soft Tissues: Normal. No suspicious osseous lesions are present. Procedure Note Vicente Cain DO - 10/17/2024 CT NECK SOFT TISSUE WITH CONTRAST Referring clinician's provided indication for this examination in [facility]:Outside Radiology Order; basal cell carcinoma of skin of nose TECHNIQUE: Multidetector-row CT of the neck was performed with intravenouscontrast using tailored dose modulation techniques. Images werereconstructed in the axial, coronal, and sagittal planes. COMPARISON: PET/CT May 20, 2023 FINDINGS: Aerodigestive Tract: There is postoperative change for right nasalresection and flap reconstruction with residual narrowing of the rightnostril. No nodular soft tissue to suggest local tumor recurrence. Lymph Nodes: Normal. There are no nodes meeting CT criteria for pathologicinvolvement. Salivary Glands: Normal. No obvious lesion is present. Thyroid Gland: The gland is homogenous in attenuation. Vessels: The major cervical vessels enhance normally. Paranasal Sinuses and Mastoids: The paranasal sinuses and mastoid aircells are well-aerated. Brain and Orbits: Normal. No detectable abnormality is present in theimaged portions of the brain and orbits. Lung Apices: Normal. No abnormal opacity is present. Bones and Soft Tissues: Normal. No suspicious osseous lesions are present. IMPRESSION: 1. Postoperative change for right nasal resection and reconstructionrelated to a right nasal basal cell carcinoma. No evidence of local tumorrecurrence. 2. No cervical lymphadenopathy. Aryan Rodriguez MD IMG CT XSPECIALTY ORDERAB LES Final Result documented in this encounter Visit Diagnoses Diagnosis Basal cell carcinoma (BCC) of skin of nose- Primary Basal cell carcinoma (BCC) of skin of nose documented in this encounter Care Teams Access Tech Relationship Specialty Start Date End Date Pcp, Unknown PCP - General 05/20/23 documented as of this encounter Additional Source Comments The information contained in this document represents components of the legal health record. It is not the complete legal health record.[facility]
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
--- NOTE | 2025-07-24 15:40 | PC.NURSE ---
patient med rec completed with patient. inpt team made aware patient stated that she has not taken medications in months due to miscarriage.
[2025-07-24 18:10] VITALS: BP 138/93; PULSE 96; RESP 18; TEMP 36.4; O2SAT 97
[2025-07-24 18:48] VITALS: BMI 28.2
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
[2025-07-24 20:00] VITALS: BP 138/93; PULSE 96; TEMP 36.4; O2SAT 97
[2025-07-24] MEDS: carBAMazepine ER 100 MG TAB.ER.12H PO (21:32)
[2025-07-25 08:00] VITALS: BP 128/88; PULSE 102; RESP 16; TEMP 36.6; O2SAT 100
[2025-07-25 08:47] LABS: Hemoglobin A1C 123.2259 umol/L; Total Hemoglobin (HGBA1C) 3309.9414 umol/L
[2025-07-25] MEDS: carBAMazepine ER 100 MG TAB.ER.12H PO ×2 (08:57→22:09)
[2025-07-25 09:10] LABS: Alanine Aminotransferase 23 U/L (0-31); Albumin Level 4.5 g/dL (3.5-5.0); Alkaline Phosphatase 63 U/L (39-117); Anion Gap 14 (12-20); Aspartate Amino Transferase 28 U/L (5-31); Blood Urea Nitrogen 6 mg/dL (9-16); Calcium 9.6 mg/dL (8.4-10.2); Carbon Dioxide 25 mmol/L (22-29); Chloride 102 mmol/L (96-108); Cholesterol 206 mg/dL (<200); Creatinine Clr Calc Pharmacy 123.6; Estimated Glomerular Filt Rate > 60; HDL Cholesterol 35 mg/dL (>40); Potassium 4.2 mmol/L (3.3-5.1); Sodium 137 mmol/L (135-145); Total Protein 8.3 g/dL (6.5-8.0); Triglycerides 78 mg/dL (<150)
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
[2025-07-25 17:13] LABS: Glucose, Whole Blood 107 mg/dL (60-115)
[2025-07-25 20:00] VITALS: BP 135/80; PULSE 111; RESP 16; TEMP 36.2; O2SAT 97
[2025-07-26 07:00] VITALS: BMI 28.6
[2025-07-26 08:00] VITALS: BP 134/80; PULSE 86; RESP 16; TEMP 36.4; O2SAT 99
[2025-07-26 08:12] LABS: Glucose, Whole Blood 102 mg/dL (60-115)
[2025-07-26] MEDS: carBAMazepine ER 100 MG TAB.ER.12H PO ×2 (09:12→21:19)
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
[2025-07-26 11:18] VITALS: PULSE 110; RESP 16; O2SAT 100
[2025-07-26 17:00] VITALS: BP 140/88; PULSE 100; RESP 16; TEMP 36.6; O2SAT 99
[2025-07-27 08:00] VITALS: BP 140/83; PULSE 97; RESP 16; TEMP 36.3; O2SAT 98
[2025-07-27] MEDS: carBAMazepine ER 100 MG TAB.ER.12H PO (08:54)
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
[2025-07-27 17:10] LABS: Glucose, Whole Blood 102 mg/dL (60-115)
[2025-07-27 20:00] VITALS: BP 145/85; PULSE 117; TEMP 36.9; O2SAT 96
[2025-07-28 08:18] LABS: Glucose, Whole Blood 113 mg/dL (60-115)
[2025-07-28 09:00] VITALS: BP 136/76; PULSE 98; TEMP 36.8; O2SAT 97
[2025-07-28] MEDS: carBAMazepine ER 100 MG TAB.ER.12H PO ×2 (09:11→20:48)
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
[2025-07-28 17:16] LABS: Glucose, Whole Blood 115 mg/dL (60-115)
[2025-07-28 20:00] VITALS: BP 145/80; PULSE 89; TEMP 36.4; O2SAT 97
[2025-07-29 08:22] VITALS: BP 126/83; PULSE 78; RESP 20; TEMP 36.4; O2SAT 98
[2025-07-29 08:29] LABS: Glucose, Whole Blood 119 mg/dL (60-115)
[2025-07-29] MEDS: carBAMazepine ER 100 MG TAB.ER.12H PO ×2 (08:29→20:10)
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
[2025-07-29 17:00] LABS: Glucose, Whole Blood 102 mg/dL (60-115)
[2025-07-29 20:00] VITALS: BP 130/88; PULSE 97; RESP 16; TEMP 36.3; O2SAT 98
[2025-07-30 08:00] VITALS: BP 129/81; PULSE 96; RESP 18; TEMP 36.4; O2SAT 99
[2025-07-30 08:00] LABS: Glucose, Whole Blood 92 mg/dL (60-115)
[2025-07-30] MEDS: carBAMazepine ER 100 MG TAB.ER.12H PO ×2 (09:05→20:41)
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
[2025-07-30 20:00] VITALS: BP 131/85; PULSE 87; RESP 18; TEMP 36.4; O2SAT 97
[2025-07-31 08:00] VITALS: BP 129/78; PULSE 94; RESP 18; TEMP 36.3; O2SAT 97
[2025-07-31 08:10] LABS: Glucose, Whole Blood 111 mg/dL (60-115)
[2025-07-31] MEDS: carBAMazepine ER 100 MG TAB.ER.12H PO ×2 (08:45→20:15)
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
--- NOTE | 2025-07-31 15:59 | HO.WOUND ---
Wound Consult: Initial 40yr old female admitted to [facility] on 07/24/25 to the Behavioral Health Unit - See progress notes and H&P for detailed history.? Wound consult placed for Right nare healed flap defect.? Patient agreeable to assessment and photo documentation.? Patient is unclear on dates of most recent surgery - the conversation was detailed at times with emphasis on how poor her surgeon was and her poor outcome. Patient reports this is her botched surgery. There is significant defect remaining to the right nare- Flap reconstruction can be multi step and the patient eludes to this but it is unclear if she stopped follow up due to poor treatment or if this was the intended end result. At this time she reports she does not have a Facial Plastic Surgeon that she is following up with. She reports she will attempt to seek treatment in [place] at time of d/c. Recommend Facial Plastic Surgery follow up for healing outpatient. Right Nare Etiology: ??Facial Flap with nare defect Wound Bed: appears as mucosal membrane unclear if wound or poor healing defect Drainage / Odor: kim thick drainage - consistent with normal nasal mucus drainage Edges: attached and rolled Nicki wound: intact ? No Induration, Fluctuance or Warmth noted Pain: tenderness to mucosal edge Goals of Treatment: ? Moist wound healing and provider to consider nasal NS spray for mucosal health and cleaning. Recommendations: Right Nare - Cleanse with saline moist gauze, pat dry. Apply Vaseline 3 times daily. May apply PRN. Recommend Saline Nasal [place] 3-4 times a day to aid in thinning mucus / drainage and allow for moist healing. Recommend outpt follow up with Plastic Surgery. Re-consult wound care Nurse for wound deterioration or wound changes.
[2025-07-31 20:00] VITALS: BP 135/78; PULSE 91; RESP 16; TEMP 36.4; O2SAT 98
[2025-08-01 08:00] VITALS: BP 112/72; PULSE 105; RESP 16; TEMP 35.9; O2SAT 99
[2025-08-01 08:18] LABS: Glucose, Whole Blood 123 mg/dL (60-115)
[2025-08-01] MEDS: carBAMazepine ER 100 MG TAB.ER.12H PO ×2 (08:36→10:34)
[2025-08-01 09:11] LABS: MANUAL DIFF FLAG NO
[2025-08-01 09:14] LABS: Hematocrit 37.3 % (37.0-47.0); Hemoglobin 12.4 g/dl (12.0-16.0); Imm Gran Abs Auto 0.03 X10*3/uL (0.00-0.03); Imm Gran Pct Auto 0.4 % (0.0-0.4); Lymphocytes Absolute Auto 1.3 X10*3/uL (1.2-4.9); Mean Corpuscular HGB Conc 33.2 g/dl (31.0-35.0); Mean Corpuscular Hemoglobin 27.6 pg (27.0-33.0); Mean Corpuscular Volume 82.9 fL (80.0-98.0); NRBC Abs Auto 0.000 X10*3/uL (0.0-0.012); NRBC Pct Auto 0.0 /100WBC (0.0-0.2); Platelet Count 439 X10*3/uL (160-400); Red Blood Count 4.50 X10*6/uL (4.20-5.50); White Blood Count 8.4 X10*3/uL (4.8-10.8)
[2025-08-01 09:31] LABS: Alanine Aminotransferase 26 U/L (0-31); Albumin Level 4.2 g/dL (3.5-5.0); Alkaline Phosphatase 67 U/L (39-117); Aspartate Amino Transferase 23 U/L (5-31); Creatinine Clr Calc Pharmacy 136.5; Estimated Glomerular Filt Rate > 60; Total Protein 7.7 g/dL (6.5-8.0)
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
[2025-08-01 09:40] LABS: Carbamazepine Tegretol 3.2 mcg/mL (5.0-12.0)
[2025-08-01 17:14] LABS: Glucose, Whole Blood 102 mg/dL (60-115)
[2025-08-01 20:00] VITALS: BP 132/91; PULSE 106; RESP 16; TEMP 36.4; O2SAT 97
[2025-08-01] MEDS: carBAMazepine ER 200 MG TAB.ER.12H PO (21:01)
[2025-08-02 07:00] VITALS: BMI 28.8
[2025-08-02 07:54] LABS: Glucose, Whole Blood 94 mg/dL (60-115)
[2025-08-02 08:00] VITALS: BP 130/79; PULSE 78; RESP 16; TEMP 36.4; O2SAT 97
[2025-08-02] MEDS: carBAMazepine ER 200 MG TAB.ER.12H PO ×2 (09:03→20:35)
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
[2025-08-02 16:57] LABS: Glucose, Whole Blood 105 mg/dL (60-115)
[2025-08-02 20:00] VITALS: BP 127/82; PULSE 78; RESP 16; O2SAT 98
[2025-08-03 07:57] LABS: Glucose, Whole Blood 98 mg/dL (60-115)
[2025-08-03 08:54] VITALS: BP 152/78; PULSE 86; RESP 20; TEMP 36.4; O2SAT 99
[2025-08-03] MEDS: carBAMazepine ER 200 MG TAB.ER.12H PO (08:56)
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
== END 2025-08-03 11:14 | disposition home or self-care (01) | DRG 750 ==
LOC: HO.ED 12:53 → HO.PM5 17:17
PROVIDERS: Admitting Provider Psychiatry & Neurology Psychiatry; Emergency Provider Emergency Medicine Emergency Medical Services; Visit Provider Psychiatry & Neurology Psychiatry
DX: F25.0 Schizoaffective disorder, bipolar type (principal); F17.210 Nicotine dependence, cigarettes, uncomplicated; F43.10 Post-traumatic stress disorder, unspecified; Z20.822 Contact with and (suspected) exposure to COVID-19; Z85.828 Personal history of other malignant neoplasm of skin; Z71.6 Tobacco abuse counseling; Z79.84 Long term (current) use of oral hypoglycemic drugs; Z79.899 Other long term (current) drug therapy
CPT/HCPCS: 36415; 80053; 80061; 80076; 80143; 80156; 80179; 80307; 81001; 81025; 82565; 82947; 83036; 84443; 85025; 87635; 93005; 99284; J2680

== ENCOUNTER → 2025-07-24 12:09 | Outpatient (BNV) | payer MEDICAID, SELFPAY | PROVIDERS: Admitting Provider Psychiatry & Neurology Psychiatry; Emergency Provider Emergency Medicine Emergency Medical Services; Visit Provider Internal Medicine | DX: I45.10 Unspecified right bundle-branch block (principal); I49.9 Cardiac arrhythmia, unspecified | CPT/HCPCS: 93010 ==

== ENCOUNTER → 2025-07-24 17:09 | Outpatient (BNV) | payer OTHER, SELFPAY | PROVIDERS: Admitting Provider Psychiatry & Neurology Psychiatry; Emergency Provider Emergency Medicine Emergency Medical Services; Visit Provider Psychiatry & Neurology Psychiatry | DX: F25.0 Schizoaffective disorder, bipolar type (principal); F43.11 Post-traumatic stress disorder, acute; C44.300 Unspecified malignant neoplasm of skin of unspecified part of face | CPT/HCPCS: 99232 ==